=== PATIENT | male | born 1990 | race Caucasian/White ===

== ENCOUNTER → 2018-06-14 09:13 | Outpatient (CLI) | payer BC, SELFPAY ==
--- NOTE | 2018-06-14 09:22 | RAD_ITS ---
STUDY: X-RAY - ESOPHAGUS (BARIUM SWALLOW) WITH FLUOROSCOPY REASON FOR EXAM: Male, 28 years old. Dysphagia for solids. TECHNIQUE: 13 view(s) of the esophagus were obtained following swallowing of barium. FLUOROSCOPY TIME (if supplied): (0:30) minutes/seconds COMPARISON: None. FINDINGS: There is no demonstrated esophageal foreign body. There is no demonstrated stricture or mucosal abnormality. Normal gastroesophageal junction, without a demonstrated hiatal hernia. The patient ingested a 12 mm tablet of barium. The tablet is trapped at the gastroesophageal junction. Normal visualized aortic arch and descending thoracic aorta. Normal visualized pulmonary parenchyma. Normal visualized osseous structures of the thorax. RAD/Esophagus Only IMPRESSION: The 12 mm tablet of barium is trapped at the gastroesophageal junction. Electronically Signed: Don Carlos MD at 15:25 EST , Service support ,
== END ==
PROVIDERS: Referring Provider Internal Medicine Gastroenterology; Visit Provider Internal Medicine Gastroenterology
DX: R13.10 Dysphagia, unspecified (principal)
CPT/HCPCS: 74220

== ENCOUNTER → 2018-09-01 | Outpatient (CLI) | payer BC, SELFPAY ==
[2018-09-01 14:28] LABS: CRP < 2.90 mg/L (0.0-3.0)
[2018-09-02 16:09] LABS: Endomysial Antibody IgA Negative (Negative)
[2018-09-03 12:33] LABS: Immunoglobulin A 262 mg/dL (90-386); t-Transglutaminase IgA <2 U/mL (0-3)
== END | disposition home or self-care (01) ==
LOC: MTLAB 12:07
PROVIDERS: Referring Provider Internal Medicine Gastroenterology; Visit Provider Internal Medicine Gastroenterology
DX: R10.9 Unspecified abdominal pain (principal); R19.7 Diarrhea, unspecified
CPT/HCPCS: 36415; 82784; 83516; 86140; 86255

== ENCOUNTER → 2018-09-03 | Outpatient (CLI) | payer BC, SELFPAY ==
--- NOTE | 2018-09-03 07:53 | RAD_ITS ---
CLINICAL HISTORY: Male, 28 years old. Brander bursts of diarrhea and vomiting that last for about an hour. Has been going on for a month. Continuous bloating. Diagnosed with esophageal dilatation in July. PROCEDURE: [employer] radiograph and small bowel follow-through images. SEDATION: None. FLUOROSCOPY TIME (if supplied): (0:56) minutes/seconds TECHNIQUE: A frontal, supine extrusion machine operator KUB radiograph was obtained. Thereafter, Dilute barium was administered by mouth. Subsequently, sequential supine KUBs were obtained at immediate, 15 minutes, 30 minutes and 90 minutes. Subsequently, [place] technique palpation of the small bowel was performed. FINDINGS: The extrusion machine operator radiograph demonstrates an unremarkable appearing bowel gas pattern without gross free air on the supine view. Air and stool are identified within the rectum. There is no plain film evidence of mass or mass effect. After the immediate, uncomplicated administration of oral barium contrast, the stomach demonstrates normal morphology, position and rotation. Contrast appears to readily exits the gastric outlet into unremarkable appearing duodenal C-sweep. Subsequent images demonstrate normal positioning, and fold pattern of small bowel. There is no small bowel distention. Contrast is seen within the colon at 90 minutes. The terminal ileum on spot images appears unremarkable. Palpation of small bowel demonstrates normal motility without fixed loops. Small bowel distribution and fold pattern appear unremarkable. RAD/Small Bowel Series Only IMPRESSION: No fluoroscopically evident pathology. Electronically Signed: Rigo Krishnamurthy MD at 10:42 EDT , Service support ,
== END | disposition home or self-care (01) ==
PROVIDERS: Referring Provider Internal Medicine Gastroenterology; Visit Provider Internal Medicine Gastroenterology
DX: R10.9 Unspecified abdominal pain (principal); R19.7 Diarrhea, unspecified
CPT/HCPCS: 74250

== ENCOUNTER 2019-05-12 17:30 | Outpatient (RCR) | payer BC, SELFPAY ==
--- NOTE | 2019-04-04 17:50 | HP.PTEVAL ---
Patient's Visit Information JJ JUAN is a 29 year old M referred to Physical Therapy by Brennen Kong with a diagnosis of NECK PAIN. Date of Evaluation: 04/04/19 Physical Therapist: Seng Cobian, PT, Cert MDT, OCS - Visit Plan Frequency: 2x /Week Duration: 4 Weeks Plan: PT INTERVENTION MANUAL THERAY OA/AA ,OCCIPUT MOBS 1-3 ,MNAULA TRACTION,DEEP NECK FLEXOR STRENGTHENING,POSTURAL STRENGTGHENING,US/MHP NEEDED - Subjective Findings: This 29 y/o male presnets to physical therapy with neck pain. Patient developed neck pain 4 months while jogging next day unable to move neck especially rotation . Patient seen DR did x-rays -. Patient lost weight in october from scar tissue in esophagus. Patient aggravates rotation some ,but limiting factors is attempting to exercise with jogging/biking. Alleviating factors time. Patient major c/o and goal is able to exercise with stiffness and unable to move neck. Denies IRVIN /tinnutus/nausea. Denies parathesia/tingling. Patient sleeping okay on side. Patient has no h/o trauma . No prior treatment.Location of symtoms base of occiput. SOCIAL: single. VOCATION: [employer] - Pain Bilateral Neck Pain Intensity (Out of 10): 3 Pain Intensity Range: 10 - Objective POSTURE: mild foward posture bilateral scapuar winging. PALAPTION: unremarkable. NEURO: denies parathesia/tingling ,reflexs C5-6-7 2/3. AROM: BUE WFL. MMT: 4/5. 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 CERVICAL ROM: flexion min loss,protrusion WF but pain OA,rotation mod loss,lateral flexion od loss,extension WFL,rectraction WFL. UPPER CERVICAL SPINE ASSESSMENT : MOD LOSS WITH PAIN - Special Tests C/S Radiculapathy - Left Upper limb tension test: Negative C/S Radiculapathy - Right Upper limb tension test: Negative C/S Radiculapathy - Left Spurlings: Positive C/S Radiculapathy - Right Spurlings: Positive C/S Radiculapathy - Left Cervical distraction: Negative C/S Radiculapathy - Right Cervical distraction: Negative C/S Radiculapathy - Left Relief test: Negative C/S Radiculapathy - Right Relief test: Negative C/S Radiculapathy - Valsalva: Negative Sharp Alycia: Negative Vertebral Artery Test: Negative Alar Ligament Test: Negative - Goals Goal 1:: Iomprove posture for ADL'S Goal Time Frame: 4-6 Weeks Goal 2:: Decrease cercical upper c-spine occiput by 60% or> to improve function. Goal Time Frame: 4-6 Weeks Goal 3:: Patient improve upper c-spine ROM to WFL to decrease pain Goal Time Frame: 4-6 Weeks Goal 4:: Improve cervical ROM for function of recovery Goal Time Frame: 4-6 Weeks Goal 5:: Patient improve cervical dash by 5 points or > to improve function/QOL. Goal Time Frame: 4-6 Weeks - Rehabilitation Potential Physical Therapy Diagnosis: Patient has upper cervical spine dysfunction with upper c-spine mod limited with pain ,inable to to specfic strenous activities ,poor cervical rotation/lateral flexion and pain with protrusion ,deep flexors weak galilea cervantes from skilled PT Rehabilitation Potential: Good - Anticipated Interventions Patient/Client Instruction: Educate patient on: Condition, Plan of Care For the Purpose of:: To decrease pain, To increase ROM, To improve nutrient delivery to tissue, To improve muscle performance and motor function, To improve ability to perform ADL's, To increase tolerance to activity/condition/position, To improve ability of physical actions for home/community/work/leisure, To improve health of tissue, To decrease soft tissue restriction, To increase flexibility/ROM, To improve ability to perform tasks related to life management Therapeutic Exercise to Include: Strength training, Postural training, Flexibilty training, Active ROM, Akiko Exercises For the Purpose of:: To decrease pain, To increase ROM, To improve muscle performance and motor function, To improve ability to perform ADL's, To increase tolerance to activity/condition/position, To improve ability of physical actions for home/community/work/leisure, To improve health of tissue, To decrease soft tissue restriction, To increase flexibility/ROM, To reduce risk of recurrence, To improve ability to perform tasks related to life management Manual Therapy Techniques to Include: Mobilization, Soft tissue mobilization Comment: OA/AA/OCCIPUT For the Purpose of:: To decrease pain, To increase ROM, To improve nutrient delivery to tissue, To increase oxygenation perfusion, To improve health of tissue, To decrease soft tissue restriction Thermo therapy (hot pack): Yes Ultrasound (thermal/non thermal): Yes For the Purpose of:: To decrease pain, To increase ROM, To improve health of tissue, To decrease soft tissue restriction Thank you for the opportunity to evaluate your patient. For Medicare and Medicare HMO plans, please review the plan of care and approve it. It will need to be FAXED BACK to us at [phone] for Medicare purposes. For Medicare only, by signing this I certify the plan of care. Please let me know if there are questions or concerns regarding this plan of care. Physician Signature: Date:
--- NOTE | 2019-08-24 08:59 | HP.PTDCSUM ---
It has been my pleasure to treat JJ JUAN referred by Brennen Kong, with the diagnosis of NECK PAIN for a total of 10 visit(s). Discharge Date: Please see the following information for a summary of their discharge status. Subjective: Seen DR for for knee and had aspiration. Did culture in knee. Seen family DR Recommeded arthritis Bilateral Neck Pain Intensity (Out of 10): 3 % Improvement: 30 Objective/Function: POSTURE: mild foward posture. NEURO: intact. AROM: BUE WFL. MMT: BUE 4/5,SHOULDER 4-/5. CERVICAL ROM: rotation /lateral flexion min/mod loss Goal 1:: Iomprove posture for ADL'S Goal 2:: Decrease cercical upper c-spine occiput by 60% or> to improve function. Goal 3:: Patient improve upper c-spine ROM to WFL to decrease pain Goal 4:: Improve cervical ROM for function of recovery Goal 5:: Patient improve cervical dash by 5 points or > to improve function/QOL. Plan: see Arthritis If there are questions or concerns regarding this patient's physical therapy, please feel free to call me at [phone]. Thank you for the referral of this patient. Sincerely, Seng Cobian, PT, Cert MDT, OCS
== END 2019-05-12 19:00 | disposition home or self-care (01) ==
LOC: PT 17:30
DX: M54.2 Cervicalgia (principal)
CPT/HCPCS: 97012; 97035; 97110; 97140; 97161

== ENCOUNTER → 2019-05-26 13:18 | Outpatient (CLI) | payer BC, SELFPAY ==
[2019-05-26 13:10] VITALS: BMI 19.8
--- NOTE | 2019-05-26 13:19 | RAD_ITS ---
STUDY: X-RAY - RIGHT KNEE REASON FOR EXAM: Anterior knee swelling for several weeks, no specific injury. TECHNIQUE: 4 view(s) of the knee. COMPARISON: None. FINDINGS: Normal visualized distal femur. Normal visualized proximal tibia and fibula. Normal proximal tibiofibular articulation. Normal medial femorotibial compartment. Normal lateral femorotibial compartment. Normal patellofemoral articulation. There is a joint effusion. RAD/Knee 4 or More Views IMPRESSION: Joint effusion. Electronically Signed: Lewis Hurley MD at 13:41 EST Tel , Service support ,
[2019-05-26 16:32] LABS: Pathologist Comment May follow
[2019-05-26 17:37] LABS: Synovial Fld Mononuclear WBC % 24.7 %; Synovial Fld Polynuclear WBC # 14.361 10^3/uL; Synovial Fld Polynuclear WBC % 75.3 %
[2019-05-26 17:47] LABS: AUTO B FLUID DILUENT BKGD CT WBC <0.1 RBC <0.01 (W<.1,R<.01); Source / Synovial Fluid RT KNEE; Source- Body Fluid SYNOVIAL
[2019-05-26 17:48] LABS: Color / Synovial Fluid Yellow (Pale Yellow); Viscosity / Synovial Fluid Sl. Viscous (HIGH)
[2019-05-26 18:03] LABS: Appearance /Synovial Fluid Turbid (CLEAR); Body Fluid QC Type(s) BF1Q,BF2Q
[2019-05-26 18:13] LABS: RBC /Synovial Fluid 20 /mm3 (0)
[2019-05-26 18:17] LABS: Lymph 12 %; Monocyte /Synovial Fluid 7 %; Neutrophil 81 % (0-25)
[2019-05-27 13:29] LABS: Pathologist Review Reviewed
[2019-05-29 10:35] LABS: GLUCOSE, SYNOVIAL FLUID 50 mg/dL (.); PROTEIN, SYNOVIAL FLUID 5.6 g/dL (.)
== END ==
PROVIDERS: Referring Provider Physician Assistant; Visit Provider Physician Assistant
DX: M25.461 Effusion, right knee (principal); M25.561 Pain in right knee
CPT/HCPCS: 73564; 82945; 84157; 87070; 87075; 87205; 89050; 89051; 89060

== ENCOUNTER → 2019-06-13 09:11 | Outpatient (CLI) | payer BC, SELFPAY ==
[2019-06-13 08:51] VITALS: BMI 19.8
[2019-06-13 09:28] LABS: Lyme Ab Screen Interpretation REF LAB
[2019-06-13 12:13] LABS: Erythrocyte Sedimentation Rate 14 mm/hr (0-15)
[2019-06-13 12:19] LABS: Absolute Lymphocyte Count 1.56 X10^3/uL (0.83-4.51); Absolute Neutrophil Count 4.9 X10^3/uL (2.0-7.7); Basophil# 0.05 X10^3/uL; Basophil% 0.6 % (0-1); Eosinophil# 0.13 X10^3/uL; Eosinophils% 1.7 % (0-5); Hematocrit 41.9 % (40-54); Hemoglobin 13.5 g/dL (13.0-16.5); Lymphocyte # 1.56 X10^3/ul (4.0); Lymphocyte % 20.1 % (19-41); Mean Corp Hgb Conc 32.2 g/dL (32-36); Mean Corpuscular Hgb 29.9 pg (27.0-32.0); Mean Corpuscular Volume 92.7 fL (80-94); Mean Platelet Vol. 10.7 fl (6.2-12.0); Monocyte# 1.12 X10^3/uL; Monocyte% 14.5 % (0-10); NRBC Flagged by Analyzer 0 % (0-5); Neutrophil # 4.87 X10^3/uL (2.7-7.7); Neutrophil % 62.8 % (47-70); Platelet Count 345 K/mm3 (150-450); RBC Distribution Width SD 40.7 fl (35.1-43.9); Red Blood Count 4.52 M/mm3 (4.6-6.2); White Blood Count 7.8 K/mm3 (4.4-11.0)
[2019-06-13 12:41] LABS: CRP 8.65 mg/L (0.0-3.0); Rheumatoid Factor < 10.0 IU/mL (<15)
[2019-06-14 17:01] LABS: ANTINUCLEAR ANTIBODIES DIRECT Negative (Negative)
[2019-06-17 16:48] LABS: CCP IgG Antibodies 9 units (0-19); HLA B27 Negative (.); Lyme Scn Total Ab w/Rflx <0.91 ISR (0.00-0.90)
== END ==
PROVIDERS: Referring Provider Physician Assistant; Visit Provider Physician Assistant
DX: M25.461 Effusion, right knee (principal)
CPT/HCPCS: 36415; 81374; 85025; 85652; 86038; 86140; 86200; 86431; 86618